=== PATIENT | male | born 1970 | race Caucasian/White ===

== ENCOUNTER 2019-09-18 15:47 | Emergency (ER) | payer OTHER ==
[~2019-09-18] VITALS: Ht 177.8 cm; Wt 73.0 kg
[2019-09-18 15:59] VITALS: BP 141/95; Ht 177.8 cm; Wt 73.0 kg
== END 2019-09-18 17:43 | disposition home or self-care (01) ==
LOC: ED 15:47
DX: M25.511 Pain in right shoulder (principal); Z88.0 Allergy status to penicillin
CPT/HCPCS: Q0092